=== PATIENT | female | born 1985 | race Caucasian/White ===

== ENCOUNTER 2016-08-24 16:27 | Inpatient (IN) | payer OTHER ==
[~2016-08-24] VITALS: Ht 167.6 cm; Wt 76.0 kg
[2016-08-24 16:31] VITALS: BP 165/92
[2016-08-24] MEDS ORDERED: LR 1,000 ML IV SCH (16:47)
[2016-08-24] MEDS ORDERED: OXYTOCIN 30 UNITS IN 0.9% NaCl 500ML IV BAG (J2590) As Ordered ONE (16:53)
[2016-08-24 17:03] VITALS: BP 127/75
[2016-08-24 17:25] VITALS: BP 136/77
[2016-08-24 17:40] VITALS: BP 123/74
[2016-08-24 17:55] VITALS: BP 116/75
[2016-08-24 18:15] LABS: MEAN CORPUSCULAR HEMOGLOBIN 33.8 pg (27.0-33.0); MEAN CORPUSCULAR HGB CONC 34.9 g/dl (32.0-36.5); MEAN CORPUSCULAR VOLUME 96.9 fl (80.0-96.0); RED CELL DISTRIBUTION WIDTH 13.8 % (11.5-14.5); WHITE BLOOD COUNT 9.9 K/mm3 (4.0-10.0)
[2016-08-24] MEDS ORDERED: OXYTOCIN DRIP 30 UNITS in APPROPRIATE DILUENT 1 EA IV SCH ×2 (18:45→23:44)
[2016-08-24 20:00] VITALS: BP 110/70
[2016-08-24] MEDS ORDERED: miSOPROStol 200 MCG TAB (S0191) PR ONE (20:00)
[2016-08-24] MEDS: DOCUSATE SODIUM 100 MG CAP PO SCH (21:00)
[2016-08-24] MEDS ORDERED: IBUPROFEN 800 MG TAB PO PRN (23:45)
[2016-08-24] MEDS ORDERED: PROMETHAZINE 25 MG TAB PO PRN (23:45)
[2016-08-24] MEDS ORDERED: MEASLES,MUMPS,RUBELLA VACCINE INJ (MMR-II) (90707) SC SCH (23:45)
[2016-08-24] MEDS ORDERED: ONDANSETRON 4MG/2ML VIAL (J2405) IV PRN (23:45)
[2016-08-24] MEDS ORDERED: METHYLERGONOVINE MALEATE 0.2 MG/ML VIAL (J2210) IM PRN (23:45)
[2016-08-24] MEDS ORDERED: ACETAMINOPHEN 500 MG TAB PO PRN (23:45)
[2016-08-24] MEDS ORDERED: DIBUCAINE 1% OINTMENT 30GM TOP PRN (23:45)
[2016-08-24] MEDS ORDERED: RHOGAM 300 MCG (1500 IU) INJ (J2790) IM SCH (23:45)
[2016-08-25 05:48] VITALS: BP 126/71
[2016-08-25] MEDS: DOCUSATE SODIUM 100 MG CAP PO SCH (08:16)
[2016-08-25] MEDS ORDERED: PRENATAL VITAMINS CHEWABLE TABLET PO SCH (09:00)
[2016-08-25] MEDS ORDERED: FERROUS SULFATE 325MG TAB PO SCH (09:00)
[2016-08-25] MEDS ORDERED: COLA100C5 PO (11:01)
[2016-08-25] MEDS ORDERED: PRENTAB55 PO (11:01)
[2016-08-25] MEDS ORDERED: FERR325T3 PO (11:01)
[2016-08-25] MEDS ORDERED: TYLE325T5 PO (11:01)
[2016-08-25] MEDS ORDERED: MOTR200T44 PO (11:01)
--- NOTE | 2016-08-26 23:05 | IPN ---
DATE: 08/25/2016 This patient has requested circumcision of their male infant. After discussing risks, benefits of circumcision, the medical and nonmedical indications, the penile block and aftercare, they expressed understanding of penile block and aftercare, signed and witnessed consent form. We await the clearance by the motor expert.
== END 2016-08-25 18:40 | disposition home or self-care (01) | DRG 775 ==
LOC: M LDO 16:27 → M LDI 16:37 → M OBS 19:36
PROVIDERS: ADMIT Obstetrics & Gynecology; ATTEND Obstetrics & Gynecology
PROC: 10E0XZZ Delivery of Products of Conception, External Approach (ICD-10-PCS; principal; 2016-08-24)
DX: O48.0 Post-term pregnancy (principal); Z3A.41 41 weeks gestation of pregnancy; O69.82X0 Labor and delivery complicated by other cord entanglement, without compression, not applicable or unspecified; Z37.0 Single live birth

== ENCOUNTER 2017-04-07 16:58 | Emergency (ER) | payer OTHER ==
[2017-04-07 17:52] LABS: INFLUENZA A AMPLIFICATION NEGATIVE (NEGATIVE); INFLUENZA B AMPLIFICATION NEGATIVE (NEGATIVE)
== END 2017-04-07 18:17 | disposition home or self-care (01) ==
LOC: M ED 16:58
DX: B34.9 Viral infection, unspecified (principal)
CPT/HCPCS: 87502

== ENCOUNTER → 2018-02-27 | Outpatient (CLI) | payer OTHER ==
[~2018-02-27] MED LIST: COLA100C5 PO; FERR325T3 PO; MOTR200T44 PO; PRENTAB55 PO; TYLE325T5 PO
[2018-02-27 22:01] LABS: APPEARANCE, URINE CLEAR (CLEAR); BACTERIA, URINE AUTO NEGATIVE (NEGATIVE); BILIRUBIN, URINE AUTO NEGATIVE (NEGATIVE); BLOOD, URINE BLOOD NEGATIVE (NEGATIVE); COLOR, URINE YELLOW (YELLOW); GLUCOSE, URINE (UA) AUTO NEGATIVE (NEGATIVE); KETONE, URINE AUTO NEGATIVE (NEGATIVE); LEUKOCYTE ESTERASE, URINE AUTO NEGATIVE (NEGATIVE); MUCUS, URINE SMALL (NEGATIVE); NITRITE, URINE AUTO NEGATIVE (NEGATIVE); PROTEIN, URINE AUTO NEGATIVE (NEGATIVE); RBC, URINE AUTO 19 /HPF (0-3); SPECIFIC GRAVITY URINE AUTO 1.024 (1.002-1.035); SQUAMOUS EPITHELIAL CELL UR AU 0 /HPF (0-6); UROBILINOGEN, URINE AUTO 0.2 mg/dL (0.0-2.0); WBC, URINE AUTO 1 /HPF (0-3)
== END ==
LOC: M LAB 20:15
PROVIDERS: ATTEND Midwife
DX: N30.90 Cystitis, unspecified without hematuria (principal)

== ENCOUNTER 2018-09-29 01:19 | Inpatient (IN) | payer OTHER ==
[~2018-09-29] VITALS: Ht 167.6 cm; Wt 81.8 kg
[2018-09-29] VITALS (11 sets, daily range): BP systolic 122–181; BP diastolic 74–94
[2018-09-29] MEDS ORDERED: OXYTOCIN 30 UNITS IN 0.9% NaCl 500ML IV BAG (J2590) As Ordered ONE (02:20)
[2018-09-29 02:27] LABS: HEMATOCRIT 29.1 % (36.0-47.0); HEMOGLOBIN 9.1 g/dl (12.0-15.5); MEAN CORPUSCULAR HEMOGLOBIN 27.7 pg (27.0-33.0); MEAN CORPUSCULAR HGB CONC 31.3 g/dl (32.0-36.5); MEAN CORPUSCULAR VOLUME 88.7 fl (80.0-96.0); PLATELET COUNT, AUTOMATED 209 10^3/uL (150-450); RED BLOOD COUNT 3.28 10^6/uL (4.00-5.40); WHITE BLOOD COUNT 9.3 10^3/uL (4.0-10.0)
[2018-09-29 02:56] LABS: ALT/SGPT 9 U/L (12-78); BILIRUBIN,TOTAL 0.4 MG/DL (0.2-1.0); CREATININE FOR GFR 0.81 MG/DL (0.55-1.30); GLOMERULAR FILTRATION RATE > 60.0 (>60); LDH LACTATE DEHYDROGENASE 170 U/L (84-246); URIC ACID 5.1 MG/DL (2.6-6.0)
[2018-09-29] MEDS ORDERED: DOCUSATE SODIUM 100 MG CAP PO PRN (07:15)
[2018-09-29] MEDS ORDERED: RHOGAM 300 MCG (1500 IU) INJ (J2790) IM SCH (07:15)
[2018-09-29] MEDS ORDERED: ACETAMINOPHEN 500 MG TAB PO PRN (07:15)
[2018-09-29] MEDS ORDERED: IBUPROFEN 800 MG TAB PO PRN (07:15)
[2018-09-29] MEDS ORDERED: MEASLES,MUMPS,RUBELLA VACCINE INJ (MMR-II) (90707) SC SCH (07:15)
[2018-09-29] MEDS ORDERED: DIBUCAINE 1% OINTMENT 30GM TOP PRN (07:15)
[2018-09-29] MEDS ORDERED: METHYLERGONOVINE MALEATE 0.2 MG TAB PO PRN (07:15)
[2018-09-29] MEDS ORDERED: ACETAMINOPHEN TAB 650MG DOSE (2X325MG) PO PRN (07:15)
[2018-09-29] MEDS ORDERED: MOM 30ML SUSPENSION UDC PO PRN (07:15)
[2018-09-29] MEDS ORDERED: IBUPROFEN 600 MG TAB PO PRN (07:15)
[2018-09-29] MEDS ORDERED: PRENATAL VITAMINS CHEWABLE TABLET PO SCH (09:00)
[2018-09-29 12:38] LABS: CHLAMYDIA DNA AMPLIFICATION NEGATIVE (NEGATIVE); GC DNA AMPLIFICATION NEGATIVE (NEGATIVE)
--- NOTE | 2018-09-29 14:19 | HPE ---
DATE OF ADMISSION: 09/29/2018 Patient is a 33-year-old female who is a G4, P3-0-0-3 at 39 weeks and 3 days gestation. Patient transferred [facility] to [facility] at 39 weeks. Her has been complicated by polycystic kidney disease. Patient presents to labor and delivery today with complaints of contractions over the last 2 hours that have been regular. She reports active movement. She denies vaginal bleeding or leaking of fluid. has also been complicated by anemia which she is taking iron for. ALLERGIES: No known drug allergies. CURRENT MEDICATIONS: Iron. PAST MEDICAL HISTORY: Polycystic kidney disease. PAST SURGICAL HISTORY: ACL repair, tonsillectomy with adenoidectomy, tympanostomy, tubal insertion. FAMILY HISTORY: Polycystic kidney disease. SOCIAL HISTORY: Patient highest education is doctorate. She is . She has no history of abuse. She is a nonsmoker. She denies any history of alcohol or drug abuse. She does have a history of HPV with a colposcopy that was negative. PAST PREGNANCIES: 03/10/2007 at 40 weeks she had a male, uncomplicated spontaneous vaginal delivery. 09/28/2009 at 40 weeks she had a living male, uncomplicated spontaneous vaginal delivery. 08/24/2016 at 41 weeks she had a uncomplicated spontaneous vaginal delivery of a male. LABS. Blood type is O+ with a negative antibody screen. Her hemoglobin and hematocrit is 11.8 and 34.5 with platelets of 173 in her first trimester. Rubella is immune. VDRL is nonreactive. Urine culture was negative. HIV was negative. Her hepatitis B surface antibody was positive for immunity. Her one hour glucose tolerance test was 88 with a hemoglobin and hematocrit of 9.2 and 27.3 with platelets of 202. Her GBS is negative. heart rate 120, moderate variability, positive accelerations, occasional early decelerations. Contractions are every 1-1/2 to 4 minutes. SVE: 6 cm dilated, 90% effaced and 0 station, anterior, scant show, bulging bag of membranes. PHYSICAL EXAMINATION: GENERAL: Alert and oriented times three. RESPIRATORY: Regular rate in-between contractions with no use of accessory muscles. ABDOMEN: Gravid. Cephalic presentation noted through vaginal exam, Daniel's maneuver. LOWER EXTREMITIES: Generalized edema. No clonus. ASSESSMENT: Intrauterine at 39 weeks 4 days gestation, active labor, negative GBS, category 1 heart rate tracing. PLAN: Admit patient to labor and delivery. Saline lock and labs per unit protocol. Hepatitis B surface antigen added along with gonorrhea, chlamydia and pre-eclamptic profile due to initial elevated blood pressure. Clear liquid diet. Out of bed ad reza. Anticipate cervical change and spontaneous vaginal delivery.
[2018-09-30 06:11] VITALS: BP 141/84
[2018-09-30 11:19] VITALS: BP 138/76
--- NOTE | 2018-10-01 16:04 | DN ---
DATE: 09/29/2018 TIME: 0357 hours STATUS: Delivered, spontaneous vaginal delivery. PROVIDER: Cherie Farris CNM ANESTHESIA: None. ESTIMATED BLOOD LOSS: 250. FINDINGS: Male, 6 pounds 13 ounces, 3080 grams, scores of 8 and 9, nuchal cord times one loose. The patient is a 33-year-old female who is now a 4, para 4-0-0-4 at 39 weeks 4 days gestation, who presented to labor and delivery in active labor. She progressed to fully dilated at 0355 hours and pushed to a living male at 0357 hours in the ROP position with restitution to OP. A loose nuchal cord was noted. Anterior shoulder delivered with ease and the corpus immediately followed. The baby was placed on the maternal abdomen, active and crying. The cord was clamped times two after pulsations ceased and cut by the father of the baby. A three vessel cord was noted. Uterine hemostasis was achieved via rapid infusion of IV Pitocin and fundal massage. The perineum, vagina, cervix were inspected and found to have a first degree perineal laceration that was repaired with 3-[address]-1. Mother plans to breast feed her baby. Mother and baby are both in stable condition. Counts of instruments and sponges were correct.
== END 2018-09-30 12:17 | disposition home or self-care (01) | DRG 807 ==
LOC: M LDI 01:19 → M OBS 07:04
PROVIDERS: ADMIT Advanced Practice Midwife; ATTEND Advanced Practice Midwife
PROC: 10E0XZZ Delivery of Products of Conception, External Approach (ICD-10-PCS; principal; 2018-09-29)
PROC: 0HQ9XZZ Repair Perineum Skin, External Approach (ICD-10-PCS; 2018-09-29)
DX: O99.02 Anemia complicating childbirth (principal); Z37.0 Single live birth; Z3A.39 39 weeks gestation of pregnancy; D64.9 Anemia, unspecified; E28.2 Polycystic ovarian syndrome; O99.284 Endocrine, nutritional and metabolic diseases complicating childbirth; O69.82X0 Labor and delivery complicated by other cord entanglement, without compression, not applicable or unspecified; O70.0 First degree perineal laceration during delivery

== ENCOUNTER → 2019-03-26 | Outpatient (POV) | payer OTHER ==
[~2019-03-26] VITALS: Ht 167.6 cm; Wt 67.3 kg
[2019-03-26 09:30] VITALS: BP 129/97
--- NOTE | 2019-03-27 10:00 | IRCOV ---
[facility] IR Consult Office Visit IR Consult Office Visit DATE: Mar 26, 2019 REASON FOR CONSULTATION/CHIEF COMPLAINT: Varicose veins. HISTORY OF PRESENT ILLNESS: 33-year-old female complaining of bulging varicose veins in the bilateral lower extremities. This is associated with the discomfort and swelling. Patient does wear compression stockings in the operating room and she is on her feet all day. Patient has 4 children the youngest being 5 months in age. Denies prior deep vein thrombosis. Denies fevers or chills. Denies pelvic congestion like symptoms, bulk symptoms or varicosities over the vulva. ALLERGIES: Please see below. HOME MEDICATIONS: Please see below. PAST MEDICAL HISTORY: Polycystic kidney disease PAST SURGICAL HISTORY: No prior surgery in the leg. No prior vein stripping or ablation. FAMILY HISTORY: Family history of varicose veins. SOCIAL HISTORY: Nonsmoker no alcohol or drugs. REVIEW OF SYSTEMS: Otherwise negative. PHYSICAL EXAMINATION: VITAL SIGNS: Please see below. GENERAL APPEARANCE: Appears well. Comfortable at rest. HEENT: No scleral icterus. RESPIRATORY: Normal breathing at rest. CARDIOVASCULAR: Normal rate. ABDOMEN: Soft nontender. EXTREMITIES: Left lower extremity: Normal color, warm to touch. No varicose eczema, skin discoloration or thickening. Visible spider veins above and below the knee. No bulging varicosities appreciated on standing. Motor and sensation intact. Femoral pulse 2+ popliteal pulse 2+ DP PT present Right lower extremity:Normal color, warm to touch. No varicose eczema, skin discoloration or thickening. Visible spider veins above and below the knee. No bulging varicosities appreciated on standing. Motor and sensation intact. Femoral pulse 2+ popliteal pulse 2+ DP PT present NEUROLOGICAL: Alert and oriented. PSYCHIATRIC: Appropriate to circumstance. LABORATORY DATA: 09/29/2018 hemoglobin 9.1 hematocrit 29.1 WBC 9.3 platelets 209 creatinine 0.8 GFR greater than 60 Imaging: No lower extremity venous imaging performed. ASSESSMENT/PLAN: 33-year-old female complaining of bilateral lower extremity varicosities associated with discomfort and swelling. I will order a bilateral lower extremity venous reflux study to assess for venous reflux. We will contact the patient once the ultrasound is done. In the meantime, advised continue wearing compression stockings throughout the day. Leg elevation 3 times a day above the level of the heart for 30 minutes. I spent 30 minutes in consultation with the patient. Thank you for this referral. CC Justin Simmons Allergies Coded Allergies: No Known Allergies (Unverified , 08/24/16) Home Medications No Active Prescriptions or Reported Meds VS, I&O, 24H, Fishbone Vital Signs/I&O Vital Signs Date Time Temp Pulse Resp B/P (MAP) Pulse Ox O2 Delivery O2 Flow Rate FiO2 03/26/19 09:30 98.1 78 18 129/97 (108) 99 Room Air LINDA MEZA MD Mar 27, 2019 10:00
== END ==
LOC: M IRPOV 09:21
PROVIDERS: ATTEND Radiology Diagnostic Radiology
DX: I83.893 Varicose veins of bilateral lower extremities with other complications (principal); Q61.3 Polycystic kidney, unspecified

== ENCOUNTER → 2019-04-04 | Outpatient (REF) | payer OTHER ==
[~2019-04-04] MED LIST changes: +VITA500079 PO
== END ==
LOC: M SFHCWAGY 12:46
PROVIDERS: ATTEND Advanced Practice Midwife
DX: Z12.4 Encounter for screening for malignant neoplasm of cervix (principal)
CPT/HCPCS: 87624; G0123; G0463

== ENCOUNTER → 2019-04-08 | Outpatient (CLI) | payer OTHER ==
[~2019-04-08] MED LIST changes: -VITA500079 PO
--- NOTE | 2019-04-08 15:31 | REP ---
Bilateral lower extremity duplex venous ultrasound: History: Varicose veins. Rule out reflux. Reflux study. Findings: The deep veins are anechoic and fully compressible from the groin to the popliteal fossa in both lower extremities on two-dimensional scanning. Color flow and spectral Doppler interrogation show no evidence of venous thrombosis. Reflux exam findings: In the right lower extremity, reflux, 9.3 seconds in duration is observed in the lesser saphenous vein which measures 4 mm. Multiple collaterals are seen to superficial veins off the lesser saphenous vein. There is also deep system reflux on the right at the level of the common femoral vein, proximal superficial femoral vein, mid superficial femoral vein, and distal superficial femoral vein. Reflux lasting 1.2 seconds is seen in the greater saphenous vein proximally at the saphenofemoral junction where it measures 5.8 mm. The greater saphenous vein measures 3.6 mm in AP dimension at midthigh. No reflux was seen in the greater saphenous vein at this level. The greater saphenous vein at the knee measures 2.8 mm without observable reflux. Left lower extremity shows significant greater saphenous vein reflux. There is a posterior accessory greater saphenous vein visible without reflux. Reflux duration was 6.7 seconds in the greater saphenous vein proximally at the saphenofemoral junction where it is diameter is 4.5 mm. At the midthigh, the greater saphenous vein measured 3.7 mm in diameter and demonstrated 6.8 second duration reflux. At the knee, the greater saphenous vein diameter is 4.2 mm and reflux duration is 6.1 seconds. The lesser saphenous vein measures 2.5 mm in diameter. It did not demonstrate reflux. Impression: Significant greater saphenous vein reflux on the left. There is deep system reflux on the right and a lesser saphenous vein reflux is seen on the right as well. Electronically Signed by Ryan Rios MD 04/08/2019 04:23 P
== END ==
LOC: M RAD 12:34
PROVIDERS: ATTEND Radiology Diagnostic Radiology
DX: I83.813 Varicose veins of bilateral lower extremities with pain (principal)

== ENCOUNTER → 2019-04-15 | Outpatient (REF) | payer OTHER | LOC: M PLALAB 15:16 | PROVIDERS: ATTEND Advanced Practice Midwife | DX: Z53.9 Procedure and treatment not carried out, unspecified reason (principal) ==

== ENCOUNTER → 2019-05-03 | Outpatient (CLI) | payer OTHER ==
[~2019-05-03] MED LIST changes: +LIDOCAINE 1% MDV 20ML VIAL As Ordered ONE; +LIDOCAINE 2% MDV 20 ML VIAL As Ordered ONE; +MIDAZOLAM INJ 2 MG/2 ML VIAL (J2250) As Ordered ONE; +VITA500079 PO; +diphenhydrAMINE INJ 50MG/ML VIAL (J1200) As Ordered ONE; +fentaNYL 100 MCG/2 ML INJECTION (J3010) As Ordered ONE
--- NOTE | 2019-05-03 08:43 | IRHP ---
[facility] IR Pre-Procedure H & P General Date of Service: May 03, 2019 Procedure: Same Day Surgery Interval History and Physical I have seen the patient and reviewed last H & P performed within 30 days. There is no significant interval change. History of Present Illness Chief Complaint The patient is a 33-year-old female admitted with a reason for visit of Varicose Veins. PRE-PROCEDURE DIAGNOSIS: varicose veins HEART: normal rate. LUNGS: normal breathing at rest. ASA Classification ASA Classification: II-Mild systemic disease Mallampati Score: II NPO: Yes Problems with prior sedation: No Obstructive Sleep Apnea: No Plan moderate sedation Allergies Coded Allergies: No Known Allergies (Unverified , 08/24/16) Home Medications Scheduled Cholecalciferol (Vitamin D3) (Vitamin D3), 1 TAB PO DAILY, (Reported) VS, I&O, 24H, Fishbone Vital Signs/I&O Vital Signs Date Time Temp Pulse Resp B/P (MAP) Pulse Ox O2 Delivery O2 Flow Rate FiO2 05/03/19 08:34 78 18 100 Room Air 05/03/19 07:45 97.9 LINDA MEZA MD May 03, 2019 08:43
[2019-05-03 11:00] VITALS: BP 129/85
--- NOTE | 2019-05-03 16:35 | POST-OPPD ---
Postoperative Procedure Note Date Of Procedure: May 03, 2019 Time Of Procedure: 16:32 PREOPERATIVE DIAGNOSIS: right LSV reflux POSTOPERATIVE DIAGNOSIS: same FINDINGS: thick walled LSV with spasm. the distal most entry point is not distal enough to treat the vein. accessible area is too close to popliteal junction for safe EVLT. No EVLT done. Patient will be brought back for vein injection/mini phlebectomy. PROCEDURE: vein access SURGEON: safia ANESTHESIA: mod sed ESTIMATED BLOOD LOSS: < 5 ml COMPLICATIONS: none POSTOPERATIVE CONDITION: stable LINDA MEZA MD May 03, 2019 16:35
--- NOTE | 2019-05-06 13:49 | REP ---
IR ultrasound guided right lesser saphenous vein access. IR ultrasound guided right lesser saphenous vein catheterization. IR moderate sedation. Clinical information: Incompetent right lesser saphenous vein associated with symptomatic varicose veins. Physician: Dr. Fishman. Procedure: The patient was advised of the benefits, risks and alternatives of the procedure and informed consent was obtained. The time-out was performed with verification of the patient's name, MRN, site of procedure and type of procedure to be performed. The patient was positioned in the prone position on the table. The site was prepped and draped in the usual sterile fashion. Moderate sedation was performed by the physician including the presence of an independent trained observer who assisted in monitoring the patient's level of consciousness and physiologic status. Following the administration of fentanyl and Versed , the physician spent 60 minutes of continuous face to face time with the patient. The patient was placed in reverse Trendelenburg. Ultrasound of the right calf, demonstrates incompetent right lesser saphenous vein with greater than 0.5 seconds reflux. Right popliteal vein is patent and compressible. Right lesser saphenous vein is thick-walled and extremely small close the ankle. There is a large collateral draining into the right lesser saphenous vein close to the popliteal junction. The access site was identified with ultrasound and anesthetized with lidocaine. The right lesser saphenous vein was accessed under ultrasound guidance at the appropriate accessible point. An 018 cope wire was advanced into the vein. Incision at the access site was made using a scalpel. The needle was removed and a micro sheath was advanced over the wire under ultrasound guidance. The wire was exchanged for an 035 wire. The micro sheath was removed over the wire and a 6-Russian vascular sheath was advanced over the wire and under ultrasound guidance. The access catheter was advanced through the sheath under ultrasound guidance and positioned 2.5 centimeters from the popliteal junction. The laser fiber was advanced through the catheter under ultrasound guidance and positioned with the tip located 2.5 cm from the popliteal junction. This demonstrated less than 2 cm vein could be treated with laser. This would risk popliteal vein thrombosis and/or skin burn. Therefore the catheter and wire were removed, pressure held and hemostasis achieved. A sterile dressing was applied to the site. The patient tolerated the procedure well and was returned to the PRU in stable condition. EBL: < 5 ml. Complications: None. Impression: 1. Ultrasound demonstrates incompetent right lesser saphenous vein. However, despite reverse Trendelenburg and sedation, the right lesser saphenous vein remained small, thick-walled and difficult to access. The most peripheral accessible site was accessed and showed that less than 2 cm of vein could be treated without risking popliteal vein thrombus and/or skin burn. Therefore, patient is not appropriate for EVLT therapy. Other options include injections and/or mini phlebectomy. We will schedule the patient for the latter. 2. Continue bilateral thigh high compression and leg elevation three times a day for 30 minutes. Thank you this referral. Electronically Signed by Barbara Fishman MD 05/06/2019 01:47 P
== END ==
LOC: M IRPRO 07:34
PROVIDERS: ATTEND Radiology Diagnostic Radiology
DX: I83.891 Varicose veins of right lower extremity with other complications (principal); I87.2 Venous insufficiency (chronic) (peripheral)
CPT/HCPCS: 36478; 76940; 99152; 99153; C1769; J2250; J3010

== ENCOUNTER → 2019-05-22 | Outpatient (REF) | payer OTHER ==
[~2019-05-22] MED LIST changes: -LIDOCAINE 1% MDV 20ML VIAL As Ordered ONE; -LIDOCAINE 2% MDV 20 ML VIAL As Ordered ONE; -MIDAZOLAM INJ 2 MG/2 ML VIAL (J2250) As Ordered ONE; -diphenhydrAMINE INJ 50MG/ML VIAL (J1200) As Ordered ONE; -fentaNYL 100 MCG/2 ML INJECTION (J3010) As Ordered ONE
[2019-05-22 17:32] LABS: PERCENT SATURATION 23.7 % (13.2-45.0)
[2019-05-22 17:42] LABS: FOLATE 6.8 NG/ML
== END ==
LOC: M LAB REF 16:53
PROVIDERS: ATTEND Internal Medicine Nephrology
DX: D64.9 Anemia, unspecified (principal)

== ENCOUNTER → 2019-05-31 | Outpatient (CLI) | payer OTHER ==
[~2019-05-31] VITALS: Ht 167.6 cm; Wt 68.0 kg
[~2019-05-31] MED LIST changes: +ALBUTEROL SULFATE 2.5 MG/0.5 ML INH NEB SOLN INH PRN; +EPINEPHrine INJ 1 MG/ML 1ML AMP IM PRN; +FERRIC CARBOXYMALTOSE INJ 750 MG in NS 250 ML IV ONE; +TRIA1CR80 TOP; +diphenhydrAMINE 50MG/ML VIAL (J1200) IV PRN; +methylPREDNISolone INJ 125 MG/2 ML VIAL (J2930) IV PRN
[2019-05-31 14:11] VITALS: BP 125/67
[2019-05-31 14:58] VITALS: BP 115/74
== END ==
LOC: M INFU 12:59
PROVIDERS: ATTEND Internal Medicine Nephrology
DX: D50.9 Iron deficiency anemia, unspecified (principal)
CPT/HCPCS: 96365; J1439

== ENCOUNTER 2019-06-07 12:59 | Outpatient (CLI) | payer OTHER ==
[~2019-06-07] VITALS: Ht 167.6 cm; Wt 68.0 kg
[~2019-06-07 12:59] MED LIST changes: -ALBUTEROL SULFATE 2.5 MG/0.5 ML INH NEB SOLN INH PRN; -EPINEPHrine INJ 1 MG/ML 1ML AMP IM PRN; -FERRIC CARBOXYMALTOSE INJ 750 MG in NS 250 ML IV ONE; -diphenhydrAMINE 50MG/ML VIAL (J1200) IV PRN; -methylPREDNISolone INJ 125 MG/2 ML VIAL (J2930) IV PRN
[2019-06-07 13:10] VITALS: BP 113/67
[2019-06-07 13:20] VITALS: BP 112/72
[2019-06-07 14:00] VITALS: BP_SYST 108; BP_SYST 112; BP_DIAS 72; BP_DIAS 80
[2019-06-07] MEDS ORDERED: methylPREDNISolone INJ 125 MG/2 ML VIAL (J2930) IV PRN (14:00)
[2019-06-07] MEDS ORDERED: EPINEPHrine INJ 1 MG/ML 1ML AMP IM PRN (14:00)
[2019-06-07] MEDS ORDERED: diphenhydrAMINE 50MG/ML VIAL (J1200) IV PRN (14:00)
[2019-06-07] MEDS ORDERED: NS 1,000 ML IV SCH (14:00)
[2019-06-07] MEDS ORDERED: ALBUTEROL SULFATE 2.5 MG/0.5 ML INH NEB SOLN INH PRN (14:00)
[2019-06-07] MEDS ORDERED: FERRIC CARBOXYMALTOSE INJ 750 MG in NS 250 ML IV ONE (14:00)
[2019-06-07 14:45] VITALS: BP 108/80
== END 2019-06-07 14:45 | disposition home or self-care (01) ==
LOC: M INFU 12:59
PROVIDERS: ATTEND Internal Medicine Nephrology
DX: D50.9 Iron deficiency anemia, unspecified (principal)
CPT/HCPCS: 96365; J1439

== ENCOUNTER → 2020-06-18 | Outpatient (REF) | payer BC, OTHER | LOC: M SFHCWAGY 09:53 | PROVIDERS: ATTEND Advanced Practice Midwife | DX: Z12.4 Encounter for screening for malignant neoplasm of cervix (principal) | CPT/HCPCS: 87624; G0123 ==

== ENCOUNTER → 2020-06-22 | Outpatient (REF) | payer BC ==
[2020-06-22 13:29] LABS: HEMATOCRIT 39.4 % (36.0-47.0); HEMOGLOBIN 13.2 g/dl (12.0-15.5); MEAN CORPUSCULAR HEMOGLOBIN 31.7 pg (27.0-33.0); MEAN CORPUSCULAR HGB CONC 33.5 g/dl (32.0-36.5); MEAN CORPUSCULAR VOLUME 94.5 fl (80.0-96.0); PLATELET COUNT, AUTOMATED 175 10^3/uL (150-450); RED BLOOD COUNT 4.17 10^6/uL (4.00-5.40); WHITE BLOOD COUNT 4.5 10^3/uL (4.0-10.0)
== END ==
LOC: M PLALAB 12:07
PROVIDERS: ATTEND Advanced Practice Midwife
DX: N92.1 Excessive and frequent menstruation with irregular cycle (principal)